=== PATIENT | female | born 1990 | race Caucasian/White ===

== ENCOUNTER 2017-08-27 18:04 | Inpatient (IN) | payer OTHER ==
[2017-08-27] MEDS ORDERED: LACTATED RINGERS 1,000 ML ONE (19:39)
[2017-08-27] MEDS ORDERED: BICITRA PO ONE (19:43)
[2017-08-27] MEDS ORDERED: PEPCID IV ONE (19:43)
[2017-08-27] MEDS ORDERED: REGLAN IV ONE (19:43)
--- NOTE | 2017-08-27 19:48 | History and Physical Report ---
History of Present Illness Date of examination: 08/27/17 Chief complaint: Labor History of present illness: Pt is a 27yo HF EDC 08/25/17; EGA 40 2/7 weeks presents to L&D complaining of contractions q 2-6 mins. She had a previous C Section and desires a Repeat C Section. She received care at [facility] since 13 weeks and course has been unremarkable. records are available and GBS is Negative. Past History Past Medical History: no pertinent history Past Surgical History: section Family/Genetic History: diabetes, hypertension Social history: no significant social history, - Obstetrical History Expected Date of Delivery: 08/25/17 Actual Gestation: 40 Week(s) 2 Day(s) : 3 Medications and Allergies Allergies Allergy/AdvReac Type Severity Reaction Status Date / Time No Known Allergies Allergy Unverified 08/27/17 18:15 Review of Systems All systems: negative - Vital Signs Vital signs: Vital Signs Pulse Pulse Ox 91 H 98 08/27/17 18:30 08/27/17 18:30 Temp Pulse Resp BP Pulse Ox 98.8 F 83 18 109/65 98 08/27/17 18:57 08/27/17 19:45 08/27/17 18:57 08/27/17 18:31 08/27/17 19:45 - Physical Exam Breasts: Positive: deferred Cardiovascular: Regular rate Lungs: Positive: Clear to auscultation Abdomen: Positive: normal appearance, soft Genitourinary (Female): Positive: normal external genitalia Uterus: Positive: enlarged Extremities: Positive: normal - Obstetrical FHR: category 1 Uterine Contraction Monitor Mode: External Cervical Dilatation: 2 Cervical Effacement Percentage: 50 station: -3 Uterine Contraction Pattern: Regular Uterine Tone Measurement Phase: Contraction Uterine Contraction Intensity: Mild Results All other labs normal. Assessment and Plan - Patient Problems (1) 40 weeks gestation of Onset Date: 08/27/17 Current Visit: Yes Status: Acute Plan to address problem: A: IUP @ 40 2/7 weeks in early labor Previous C Section P: Admit to L&D for a Repeat C Section (2) Previous delivery affecting Onset Date: 08/27/17 Current Visit: Yes Status: Acute
[2017-08-27] MEDS ORDERED: LACTATED RINGERS 1,000 ML IV SCH (20:00)
[2017-08-27] MEDS ORDERED: ANCEF/STERILE WATER 2 GM/20 ML 2 GM/20 ML SYRINGE IV NR (20:00)
[2017-08-27 20:52] LABS: Basophils % (Auto) 0.4 % (0.0-1.8); Eosinophils % (Auto) 0.3 % (0.0-4.3); Hemoglobin 9.8 gm/dl (10.1-14.3); Lymphocytes # (Auto) 1.1 K/mm3 (1.2-5.4); Mean Corpuscular HGB Conc 33 % (30-34); Mean Corpuscular Hemoglobin 28 pg (28-32); Mean Corpuscular Volume 84 fl (79-97); Monocytes # (Auto) 0.7 K/mm3 (0.0-0.8); Platelet Count 208 K/mm3 (140-440); Red Blood Count 3.56 M/mm3 (3.65-5.03); Red Cell Distribution Width 15.6 % (13.2-15.2)
[2017-08-27] MEDS ORDERED: NARCAN 0.4 MG/1 ML IV PRN ×2 (21:58→23:16)
[2017-08-27] MEDS ORDERED: PHENERGAN PO PRN (21:58)
[2017-08-27] MEDS ORDERED: PHENERGAN PR PRN (21:58)
[2017-08-27] MEDS ORDERED: ZOFRAN IV PRN (21:58)
[2017-08-27] MEDS ORDERED: MORPHINE IV PRN (21:58)
--- NOTE | 2017-08-27 21:58 | Anesthesia Consultation ---
Anesthesia Consult and Med Hx Date of service: 08/27/17 - Airway Anesthetic Teeth Evaluation: Good ROM Head & Neck: Adequate Mental/Hyoid Distance: Adequate Mallampati Class: Class II Intubation Access Assessment: Good - Pulmonary Exam CTA: Yes - Cardiac Exam Cardiac Exam: No Murmur - Pre-Operative Health Status ASA Pre-Surgery Classification: ASA2 Proposed Anesthetic Plan: Epidural - Pulmonary Hx Asthma: No - Cardiovascular System Hx Hypertension: No - Central Nervous System Hx Seizures: No Hx Psychiatric Problems: No - Endocrine Hx Renal Disease: No Hx Hypothyroidism: No Hx Hyperthyroidism: No - Hematic Hx Anemia: No Hx Sickle Cell Disease: No - Other Systems Hx Alcohol Use: No
[2017-08-27] MEDS ORDERED: fentaNYL-BUPIV 2 MCG/ML-0.125% 200 MCG/100 ML BAG EPIDURAL SCH (22:00)
[2017-08-27] MEDS ORDERED: SODIUM CHLORIDE FLUSH SYRINGE 10 ML IV PRN (22:00)
[2017-08-27] MEDS ORDERED: MORPHINE ONE (22:11)
[2017-08-27] MEDS ORDERED: NACL 0.9% IR ONE ×2 (22:20)
[2017-08-27] MEDS ORDERED: WATER FOR IRRIG STERILE IR ONE ×2 (22:20)
[2017-08-27] MEDS ORDERED: TORADOL ONE (22:25)
[2017-08-27] MEDS ORDERED: NEO SYNEPHRINE ONE (22:42)
--- NOTE | 2017-08-27 23:14 | Operative Report ---
Operative Report Operative Report: Date of procedure: 08/27/2017 Pre-operative diagnosis: 1. Intrauterine at 40-2/7 weeks in labor 2. Previous section Post-operative diagnosis: Same Procedure name(s): Repeat low transverse section Surgeon: Rohith Sosa MD Able Bodied Watchman: None Anesthesia: Spinal anesthesia by Dr. So EBL: 600mls Findings: A 3877 g male Apgars 8 at 1 minute and 9 at 5 minutes. Clear amniotic fluid. Normal uterus. Normal tubes and ovaries bilaterally. Procedure: After the patient was prepped and draped in usual sterile fashion, and after satisfactory level of epidural anesthesia was obtained, the skin knife was used to make a transverse skin incision through the previous skin scar. The incision was excised down to layer of the fascia, which was nicked in the midline and extended laterally using the Bovie cautery. The rectus muscles were dissected off the rectus fascia both superiorly and inferiorly. The rectus bellies in the midline, and the peritoneum was entered under direct visualization. The peritoneal incision was extended superiorly and inferiorly. A bladder flap was created and the bladder blade was then placed. The uterus was scored in a curvilinear linear fashion, entered in the midline revealing clear amniotic fluid. The infant's head was delivered onto the surgical field, and the oropharynx and nasopharynx were bulb suctioned. The rest of the infant's body was delivered, cord was doubly clamped and cut and the was handed to the waiting respiratory team. Cord blood was then obtained. The placenta was manually removed from the uterus, and the uterus removed from its normal anatomical position. After gentle uterine lavage, the incision was inspected and found to be without extensions. It was then closed in 2 layers using 0 Vicryl suture in a running interlocking fashion, the second layer imbricating the first. After good hemostasis was achieved, copious amounts or irrigation was performed, and the gutters were suctioned free of blood and blood clots. The Tisseel sealant was sprayed across the uterine incision. The uterus was then returned to its normal anatomical position, and after excellent hemostasis assured, the peritoneum was re-approximated using 3- 0 Vicryl suture in a running interlocking fashion, and then the rectus muscles were re-approximated using 3-0 Vicryl suture in a [id number] configuration. The fascia was then re-approximated using 0 Vicryl suture in running interlocking fashion. The subcutaneous layer was made hemostatic using Bovie cautery, the Tisseel sealant was sprayed across the fascial incision and the skin edges re-approximated using 4-0 Vicryl suture in a sub-cuticular fashion. Patient tolerated the procedure well was transported to recovery in stable condition.
[2017-08-27] MEDS ORDERED: LANSINOH TP PRN (23:16)
[2017-08-27] MEDS ORDERED: MYLICON PO PRN (23:16)
[2017-08-27] MEDS ORDERED: TYLENOL PO PRN (23:16)
[2017-08-27] MEDS ORDERED: SENOKOT PO PRN (23:16)
[2017-08-27] MEDS ORDERED: TORADOL IV PRN (23:16)
[2017-08-27] MEDS ORDERED: MILK OF MAGNESIA PO PRN (23:16)
[2017-08-27] MEDS ORDERED: TUCKS PAD TP PRN (23:16)
[2017-08-27] MEDS ORDERED: NORCO 5/325 PO PRN (23:16)
[2017-08-27] MEDS ORDERED: SODIUM CHLORIDE FLUSH SYRINGE 10 ML IV NR (23:45)
[2017-08-27] MEDS ORDERED: D5LR 1,000 ML IV SCH (23:45)
[2017-08-27] MEDS ORDERED: ANCEF/NS 1 GM/50 ML 1 GM/50 ML BAG IV SCH (23:45)
[2017-08-27] MEDS ORDERED: PITOCin/NS 20 UNIT/1000ML DRIP 20 UNITS/1,000 ML BAG IV SCH (23:45)
[2017-08-27] MEDS: PITOCin/NS 20 UNIT/1000ML DRIP 20 UNITS/1,000 ML BAG IV SCH (23:55)
[2017-08-28] MEDS: PITOCin/NS 20 UNIT/1000ML DRIP 20 UNITS/1,000 ML BAG IV SCH (00:03)
[2017-08-28] MEDS: ceFAZolin 1 GM in NACL 0.9% 20 ML IV SCH ×2 (03:57→12:30)
[2017-08-28] MEDS: PERCOCET 5/325 PO PRN ×2 (10:30→20:02)
[2017-08-28] MEDS: FEOSOL PO SCH (10:30)
[2017-08-28] MEDS: PRENATAL VITAMIN PO SCH (10:30)
--- NOTE | 2017-08-28 10:55 | Progress Note ---
Assessment and Plan A: POD #1, Stable Low Diastolic BP P: 500cc fluid bolus. Routine post-op care. Subjective - Subjective Date of service: 08/28/17 Principal diagnosis: Repeat at 40+ weeks Patient reports: appetite normal, voiding normally, pain well controlled : doing well Objective - Vital Signs Latest vital signs: Vital Signs Temp Pulse Resp BP BP Pulse Ox 08/28/17 08:53 97.8 F 60 18 98/58 08/28/17 06:02 97.7 F 100 H 20 102/39 08/28/17 01:10 97.5 F L 57 L 18 101/45 99 08/28/17 00:31 50 L 12 87/39 98 08/28/17 00:25 97.7 F 48 L 16 82/38 97 08/28/17 00:21 62 14 94/39 99 08/28/17 00:18 97 H 133/79 08/28/17 00:15 46 L 13 87/48 96 08/28/17 00:10 50 L 14 92/43 98 08/28/17 00:00 49 L 13 83/39 98 08/27/17 23:50 63 12 86/39 97 08/27/17 23:45 51 L 14 83/39 97 08/27/17 23:40 60 14 86/32 98 08/27/17 23:30 62 14 87/33 97 08/27/17 23:25 55 L 14 88/35 96 08/27/17 23:23 97.7 F 64 15 85/39 96 08/27/17 23:22 58 L 14 96 08/27/17 20:00 77 99 08/27/17 19:55 79 98 08/27/17 19:50 73 97 08/27/17 19:45 83 98 08/27/17 19:40 83 97 08/27/17 19:35 73 97 08/27/17 19:30 78 97 08/27/17 19:25 102 H 96 08/27/17 19:20 74 97 08/27/17 19:15 82 97 08/27/17 19:10 77 97 08/27/17 19:05 81 98 08/27/17 19:00 86 97 08/27/17 18:57 98.8 F 18 08/27/17 18:55 86 98 08/27/17 18:50 83 96 08/27/17 18:45 107 H 97 08/27/17 18:40 86 97 08/27/17 18:35 83 97 08/27/17 18:31 89 109/65 08/27/17 18:30 91 H 98 Intake and Output 08/27/17 08/28/17 08/28/17 23:59 07:59 15:59 Intake Total 900 136.667 Output Total 600 200 Balance 300 -63.333 Intake: IV 900 16.667 PITOCin/NS 20 UNIT/1000ML 16.667 DRIP 20 units In 1,000 ml @ As Directed IV TITR MARIE Rx#:[id number] Intake, Free Water 120 Output: Urine 600 200 Indwelling Catheter 200 Uretheral ([place]) 300 Other: Total, Output Amount 200 Weight 87.09 kg Estimated Blood Loss 600 - Exam Breasts: Present: deferred Cardiovascular: Present: Regular rate (Low diastolic BP) Lungs: Present: Clear to auscultation Abdomen: Present: normal appearance, soft Vulva: both: normal Uterus: Present: fundal height below umbilicus Extremities: Present: normal Deep Tendon Reflex Grade: Normal +2 Incision: Present: intact, dressed - Labs Labs: Abnormal lab results 08/27/17 Range/Units 20:33 RBC 3.56 L (3.65-5.03) M/mm3 Hgb 9.8 L (10.1-14.3) gm/dl Hct 30.0 L (30.3-42.9) % RDW 15.6 H (13.2-15.2) % [place] % (Auto) 9.0 H (0.0-7.3) % Lymph # 1.1 L (1.2-5.4) K/mm3 Seg Neutrophils % 76.3 H (40.0-70.0) %
[2017-08-28] MEDS ORDERED: D5LR 500 ML IV SCH (11:00)
[2017-08-28 11:05] LABS: Hematocrit 27.1 % (30.3-42.9); Hemoglobin 8.6 gm/dl (10.1-14.3)
[2017-08-28] MEDS ORDERED: Fluarix Quad 2017-2018(36 MOS+ IM ONE (12:00)
[2017-08-28] MEDS ORDERED: M-M-R II VACCINE SUB-Q ONE (23:19)
[2017-08-29] MEDS: PERCOCET 5/325 PO PRN ×2 (04:43→13:51)
[2017-08-29] MEDS: MOTRIN PO PRN ×2 (04:43→13:51)
[2017-08-29] MEDS ORDERED: BOOSTRIX IM ONE (06:00)
--- NOTE | 2017-08-29 11:20 | Progress Note ---
Assessment and Plan O: BP's WNL. A: POD #2, Stable P: Discharge home in A.M. Subjective - Subjective Date of service: 08/29/17 Principal diagnosis: Repeat at 40+ weeks Patient reports: appetite normal, voiding normally, pain well controlled, ambulating normally : doing well, nursing well Objective - Vital Signs Latest vital signs: Vital Signs Temp Pulse Resp BP 08/29/17 08:00 98.2 F 68 18 101/52 08/29/17 00:00 98.6 F 66 18 102/78 08/28/17 17:00 98.3 F 64 101/62 Intake and Output 08/28/17 08/29/17 08/29/17 23:59 07:59 15:59 Intake Total 300 500 Output Total 1300 Balance -1000 500 Intake: Oral 300 200 Intake, Free Water 300 Output: Urine 1300 Void 1300 Other: Total, Intake Amount 300 200 Total, Output Amount 500 # Voids Void 1 - Exam Breasts: Present: normal Cardiovascular: Present: Regular rate Lungs: Present: Clear to auscultation Abdomen: Present: normal appearance, soft Vulva: both: normal Uterus: Present: normal, fundal height below umbilicus Extremities: Present: normal Deep Tendon Reflex Grade: Normal +2 Incision: Present: normal, intact
--- NOTE | 2017-08-29 11:24 | Discharge Summary ---
Providers - Providers Date of Admission: 08/27/17 19:52 Date of discharge: 08/30/17 Attending physician: PACO GAUTAM MD Primary care physician: PACO GAUTAM MD Hospitalization Reason for admission: section Delivery: Procedure: repeat low transverse Episiotomy: none Laceration: none Incision: normal, intact Other procedures: none complications: none Discharge diagnosis: IUP at term delivered baby: male Condition at discharge: Good Disposition: [id number]-01 TO HOME OR SELFCARE Plan - Discharge Medications Prescriptions: Ferrous Sulfate [Feosol 325 MG tab] 325 mg PO BID #60 tablet HYDROcodone/APAP 5-325 [[place] 5/325] 1 each PO Q6HR PRN #30 tablet PRN Reason: Pain Ibuprofen [Motrin] 800 mg PO Q8HR PRN #30 tablet PRN Reason: Moder Pain Unrelieved By [place] Vit Calc,Iron,Folic [ Vitamins] 1 each PO DAILY #30 tablet - Provider Discharge Summary Activity: routine, no sex for 6 weeks, no heavy lifting 4 weeks, no strenuous exercise Diet: routine Instructions: routine Additional instructions: [] Smoking cessation referral if applicable(refer to patient education folder for contact #) [] Refer to [facility]'s [facility] Booklet Call your doctor immediately for: * Fever > 100.5 * Heavy vaginal bleeding ( >1 pad per hour) * Severe persistent headache * Shortness of breath * Reddened, hot, painful area to leg or breast * Drainage or odor from incision. * Keep incision clean and dry at all times and follow doctor's instructions regarding bathing/showering - Follow up plan Follow up: PACO GAUTAM MD [Primary Care Provider] - 14 Days
[2017-08-29] MEDS: PRENATAL VITAMIN PO SCH (13:52)
[2017-08-29] MEDS: FEOSOL PO SCH (13:52)
[2017-08-30] MEDS: MOTRIN PO PRN ×2 (03:40→10:07)
[2017-08-30] MEDS: FEOSOL PO SCH (10:05)
[2017-08-30] MEDS: PRENATAL VITAMIN PO SCH (10:05)
[2017-08-30 13:22] VITALS: BP 105/50
== END 2017-08-30 12:45 | disposition home or self-care (01) | DRG 765 ==
LOC: TRG 18:04 → APU 19:52 → OB 08-28 01:49
PROVIDERS: ADMIT Obstetrics & Gynecology; ATTEND Obstetrics & Gynecology
PROC: 10D00Z1 Extraction of Products of Conception, Low, Open Approach (ICD-10-PCS; principal; 2017-08-27)
PROC: 3E0234Z Introduction of Serum, Toxoid and Vaccine into Muscle, Percutaneous Approach (ICD-10-PCS; 2017-08-28)
DX: O34.211 Maternal care for low transverse scar from previous cesarean delivery (principal); O26.53 Maternal hypotension syndrome, third trimester; Z23 Encounter for immunization; Z82.49 Family history of ischemic heart disease and other diseases of the circulatory system; Z83.3 Family history of diabetes mellitus; Z3A.40 40 weeks gestation of pregnancy; Z37.0 Single live birth
CPT/HCPCS: 36415; 85014; 85018; 85025; 86850; 86900; 86901; 90471; 90686; 90715; 99211; C9250; G0463; J0690; J1885; J2270; J2370; J2405; J2590; J2765; J7120; J7121